=== PATIENT | female | born 1985 | race African-American/Black ===

== ENCOUNTER 2016-07-28 15:04 | Inpatient (IN) | payer OTHER ==
[2016-07-28] MEDS ORDERED: OXYTOCIN IN LR 500 ML IV ONE ×2 (15:31→17:52)
[2016-07-28] MEDS ORDERED: MINERAL OIL 25 ML BOT ONE (15:31)
[2016-07-28] MEDS ORDERED: LIDOCAINE Viscous 2% 15 ML UDCUP ONE (15:31)
[2016-07-28] MEDS ORDERED: PUMP TUBING ONE (15:31)
[2016-07-28] MEDS ORDERED: LIDOCAINE 1% (PRES FREE) 30 ML VIAL ONE (15:31)
[2016-07-28] MEDS ORDERED: OXYTOCIN 10 UNITS/ML VIAL ONE (15:31)
[2016-07-28] MEDS ORDERED: LACTATED RINGERS 1,000 ML ONE (15:32)
[2016-07-28] MEDS ORDERED: IV START KIT ONE (15:32)
[2016-07-28 15:59] VITALS: BMI 32.8
[2016-07-28 16:09] LABS: AMPHETAMINES/METHAMPHETAMINES NEGATIVE (NEGATIVE); COCAINE NEGATIVE (NEGATIVE); METHADONE NEGATIVE (NEGATIVE); OPIATES NEGATIVE (NEGATIVE); TRICYCLIC ANTIDEPRESSANTS NEGATIVE (NEGATIVE)
[2016-07-28] MEDS ORDERED: OXYTOCIN IN LR 500 ML IV PRN (16:09)
[2016-07-28 16:10] LABS: MARIJUANA POSITIVE (NEGATIVE)
--- NOTE | 2016-07-28 16:17 | PCMAN ---
OB Admission Note - History : 2 Term: 1 Livin EDC:: 08/02/16 Gestational Age (weeks): 39 Days (#/7): 1 Admit Cervical Dilation:: 1-2 Admit Cervical Effacement (%):: 70 Admit Station:: -2 Admit Presentaton:: vertex Membrane Status: Intact Contractions: Yes Heart Rate:: 140 (cat 1) Status:: reassuring EFW:: 7 lbs Summary of Course:: complicated by marginal cord insertion. anemia, on iron depression marijuana use Past OB hx: 10/27 3.5 kg female , vaginal no complications PMH: none PSH: none meds: iron, PNAV SH: some marijuana use, no etoh or tobacco, fob is involved FH: none - Labs Blood Type: B (+) positive Hct/Hgb:: 03/22 Rubella Status: Immune GBS Status: Negative Abnormal Labs: None - Physical Exam General: Afebrile Psych/Mental Status: Mood/Affect Appropriate Neurological: Alert HEENT: Atraumatic Lungs: Clear to Auscultation Bilaterally Cardiovascular: Regular Rate and Rhythm Abdomen: Normal Bowel Sounds Genitourinary: Normal Female Genitalia Rectal Exam: Deferred Extremities: Full ROM Skin: Normal Color - Problems (1) Term Status: Acute Code: Z34.80Assessment/Plan: desires IOL for maternal discomfort at term. She understands the increased risk for C/S with induction but desires to proceed. Will plan on Cook catheter and pitocin for IOL. FWB overall reassuring, cat 1 (2) Elective induction of labor planned Status: Acute Code: [id number]/Plan: as above
[2016-07-28] MEDS: LACTATED RINGERS 1,000 ML IV SCH ×4 (16:20→23:48)
[2016-07-28] MEDS: FENTANYL 100 MCG/2 ML VIAL IV PRN ×2 (16:32→16:44)
[2016-07-28 16:53] LABS: HEMATOCRIT 30.5 % (37.0-47.0); HEMOGLOBIN 10.3 gm/l (12.0-16.0); MEAN CELL VOLUME 94.4 fl (81.0-99.0); MEAN CORPUSCULAR HEMOGLOBIN 31.9 pg (27.0-31.0); MEAN CORPUSCULAR HGB CONC 33.8 g/dl (33.0-37.0); RED CELL DISTRIBUTION WIDTH 13.4 % (11.5-14.5)
--- NOTE | 2016-07-28 17:07 | PDOC36 ---
Provider Note Subject: doing well. o: vss af FHT: 150's mod stv/ltv pos. accels no decels SVE: 1-2//-2 Cook Catheter placed toco: rare UC A/P: IUP at 39 weeks IOL per patient request cook placed, low dose pitocin for now marijuana use: will need to discuss again need to stop for breast feeding FWB overall reassuring cat 1
[2016-07-28] MEDS ORDERED: FENTANYL 100 MCG/2 ML VIAL IV PRN ×2 (17:08→20:31)
--- NOTE | 2016-07-28 20:31 | PDOC36 ---
Provider Note Subject: doing well. feeling uc's Note: vss af FHT 140 mod stv/ltv pos. accels, no decels toco: q 3-4 sve: 4-5/80/-1 arom clear A/P: IUP at 39 weeks, AROM s/p cook FWB overall reassuring, cat 1 cont. pitocin
[2016-07-28] MEDS ORDERED: FENTANYL/ROPIVACAINE EPIDURAL 250 ML EP ONE (22:05)
[2016-07-28] MEDS ORDERED: EPIDURAL PUMP SET ONE (22:05)
[2016-07-28] MEDS: FENTANYL/ROPIVACAINE EPIDURAL 250 ML EP SCH (22:46)
[2016-07-28] MEDS ORDERED: EPIDURAL PROCEDURE TRAY ONE (22:50)
[2016-07-28] MEDS ORDERED: ROPIVACAINE 0.5% 30 ML VIAL ONE (22:50)
[2016-07-28] MEDS ORDERED: NALOXONE HCL 0.4 MG/ML VIAL IV PRN (23:30)
[2016-07-28] MEDS ORDERED: SODIUM CHLORIDE 0.9% 500 ML IV PRN (23:30)
[2016-07-28] MEDS ORDERED: EPHEDRINE SULFATE 50 MG/ML 1ML VIAL IV PRN (23:30)
[2016-07-28] MEDS ORDERED: METOCLOPRAMIDE HCL 5 MG/ML 2ML VIAL IV PRN (23:30)
[2016-07-28] MEDS ORDERED: NALBUPHINE HCL 20 MG/ML AMP IV PRN (23:30)
[2016-07-28] MEDS ORDERED: LACTATED RINGERS 500 ML IV PRN (23:30)
[2016-07-28] MEDS ORDERED: DIPHENHYDRAMINE HCL 50 MG/1 ML VIAL IV PRN (23:30)
[2016-07-28] MEDS ORDERED: ONDANSETRON 4 MG/2ML 2 ML VIAL IV PRN (23:30)
[2016-07-29] MEDS: LACTATED RINGERS 1,000 ML IV SCH ×3 (02:23→07:58)
[2016-07-29] MEDS ORDERED: LANOLIN 50 APPLIC/7G TUBE TP PRN (05:52)
[2016-07-29] MEDS ORDERED: DOCUSATE SODIUM 100 MG CAPSULE PO PRN (05:52)
[2016-07-29] MEDS ORDERED: BENZOCAINE/MENTHOL 60 APPLIC/BOT TP PRN (05:52)
[2016-07-29] MEDS ORDERED: HYDROCODONE/ACETAMINOPHEN 5/325MG TABLET PO PRN (05:52)
--- NOTE | 2016-07-29 05:56 | PCMDEL ---
Delivery Note - Labor 1st stage (hr/min):: 9 hours 50 min 2nd stage (hr/min):: 2 min 3rd stage (hr/min):: 3 min Total (hr/min):: 9 hours 55 min Pushed (hr/min):: 2 min - Delivery Delivery (Date): 07/29/16 Delivery (Time): 05:35 Infant Gender: Male Presentation: Cephalic Umbilical Cord: 3 Vessel Delayed Cord Clamping:: Not Performed 1 Minute Total: 9 5 Minute Total: 9 Placenta:: marginal cord insertion EBL:: 250 ml Perineum:: 1 degree left periurethral laceration repaired with 3.0 vicryl Suture:: as above Anesthesia/Meds:: epidural, and 1% lidocaine Length ROM:: 8 hours Comments:: vigorous male.
[2016-07-29] MEDS ORDERED: LIDOCAINE 1% (PRES FREE) 30 ML VIAL SUB-Q ONE (06:00)
[2016-07-29] MEDS: FENTANYL/ROPIVACAINE EPIDURAL 250 ML EP SCH (07:58)
[2016-07-29] MEDS: IBUPROFEN 800 MG TABLET PO PRN ×2 (12:52→20:53)
[2016-07-30] MEDS: IBUPROFEN 800 MG TABLET PO PRN ×2 (02:35→11:37)
[2016-07-30 07:02] LABS: HEMATOCRIT 30.7 % (37.0-47.0); HEMOGLOBIN 10.1 gm/l (12.0-16.0)
[2016-07-30 07:21] VITALS: BP 123/58
--- NOTE | 2016-07-30 08:30 | PDOC39B ---
Hospital Course: ADMIT DATE: 07/28/16 DISCHARGE DATE: 07/30/16 ADMISSION DIAGNOSES: IOL at 39 weeks PROCEDURES: HISTORY OF PRESENT ILLNESS: 30 year old G2 T1 L1 at 39 weeks 3 days presenting with Induction of labor secondary to maternal desire to deliver. HOSPITAL COURSE: The patient underwent induction with cook catheter, and pitocin, and arom. She delivered by . By day of discharge the patient is ambulating, eating, voiding, and passing flatus without difficulty. Pain is controlled and lochia is appropriate. She is [ some mostly formula feeding. - Physical Exam Vital Signs: Temp Pulse Resp BP Pulse Ox 98.4 F 78 16 123/58 07/30/16 07:18 07/30/16 07:18 07/30/16 07:18 07/30/16 07:18 General: Afebrile Psych/Mental Status: Bonding Well Neurological: Alert Lungs: Clear to Auscultation Bilaterally Cardiovascular: Regular Rate and Rhythm Breast: Soft Fundus: Firm, Below Umbilicus Abdomen: Normal Bowel Sounds Lochia: Light Rectal Exam: Deferred Extremities: Other (nt, no edema) Skin: Normal Color - Discharge Diagnosis (1) Term Status: Acute (2) Elective induction of labor planned Status: AcuteAssessment/Plan: , PPD 1, doing well. discharge home (3) (normal spontaneous vaginal delivery) Status: AcuteAssessment/Plan: doing well. pp day one, doing well. home. - Discharge Plan Condition: Good Disposition: Home Prescriptions: Ibuprofen [Motrin] 800 mg PO Q8H PRN #30 tablet PRN Reason: Pain Hydrocodone/Acetaminophen [[place] 7.5-325 Tablet] 1 each PO TID #30 tablet Follow-Up: Jodi Govea MD [Primary Care Provider] - In 6 weeks
== END 2016-07-30 13:00 | disposition home or self-care (01) | DRG 775 ==
LOC: FBC 15:04 → EDSTATUS 08-02 16:14
PROVIDERS: ADMIT Family Medicine; ATTEND Family Medicine
PROC: 3E0P7GC Introduction of Other Therapeutic Substance into Female Reproductive, Via Natural or Artificial Opening (ICD-10-PCS; 2016-07-28)
PROC: 10907ZC Drainage of Amniotic Fluid, Therapeutic from Products of Conception, Via Natural or Artificial Opening (ICD-10-PCS; 2016-07-28)
PROC: 10E0XZZ Delivery of Products of Conception, External Approach (ICD-10-PCS; principal; 2016-07-29)
PROC: 0HQ9XZZ Repair Perineum Skin, External Approach (ICD-10-PCS; 2016-07-29)
DX: O70.0 First degree perineal laceration during delivery (principal); O99.02 Anemia complicating childbirth; D62 Acute posthemorrhagic anemia; O99.324 Drug use complicating childbirth; O99.344 Other mental disorders complicating childbirth; F32.9 Major depressive disorder, single episode, unspecified; O69.89X0 Labor and delivery complicated by other cord complications, not applicable or unspecified; Z37.0 Single live birth; F12.20 Cannabis dependence, uncomplicated; Z3A.39 39 weeks gestation of pregnancy